=== PATIENT | female | born 1960 | race Hispanic/Latino ===

== ENCOUNTER 2021-12-17 17:26 | Observation (INO) | payer SELFPAY ==
[2021-12-17] MEDS ORDERED: Lorazepam 2 MG/ML VIAL ONE (17:45)
[2021-12-17] MEDS ORDERED: Aspirin Chewable 81 MG TAB ONE (17:45)
[2021-12-17 18:19] LABS: #Basophils 0.1 thou/uL (0.0-0.2); #Eosinphils 0.2 thou/uL (0.0-0.7); #Lymphocytes 3.2 thou/uL (1.20-3.40); #Monocytes 0.7 thou/uL (0.11-0.59); #Neutrophils 5.5 thou/uL (1.40-6.50); %Basophils 0.6 % (0.0-1.0); %Lymphocytes 33.2 % (21.0-51.0); %Monocytes 7.1 % (0.0-10.0); Hemoglobin 13.2 g/dL (12.0-16.0); Mean Corpuscular Hemoglobin 30.7 pg (27.0-31.0); Mean Corpuscular Volume 90.3 fL (78.0-98.0); Mean Platelet Volume 8.1 fL (7.4-10.4); Platelet Count 218 thou/uL (130-400); RBC Distribution Width 12.1 % (11.5-14.5); Red Blood Cell (RBC) Count 4.29 mill/uL (4.20-5.40); White Blood Cell (WBC) Count 9.7 thou/uL (4.8-10.8)
[2021-12-17 18:42] LABS: ALT (SGPT) 15 U/L (8-55); AST (SGOT) 17 U/L (5-34); Albumin 4.1 g/dL (3.4-4.8); Alkaline Phosphatase 114 U/L (40-110); Anion Gap 13 mmol/L (10-20); BUN (Urea Nitrogen) 13 mg/dL (9.8-20.1); Bilirubin, Total 0.3 mg/dL (0.2-1.2); Calc. Creatinine Clearance 0 mL/min (70-130); Calcium 9.3 mg/dL (7.8-10.44); Carbon Dioxide 23 mmol/L (23-31); Chloride 94 mmol/L (98-107); Glucose 204 mg/dL (80-115); Lipase 57 U/L (8-78); Potassium 3.8 mmol/L (3.5-5.1); Protein, Total 7.1 g/dL (5.8-8.1); Sodium 126 mmol/L (136-145)
[2021-12-17 21:42] LABS: Troponin I Less than 0.010 ng/mL (< 0.028)
[2021-12-17] MEDS ORDERED: Ondansetron ODT 4 MG TAB PO PRN (22:20)
[2021-12-17] MEDS ORDERED: Acetaminophen 325 MG TAB PO PRN (22:20)
[2021-12-17] MEDS ORDERED: Nitroglycerin 0.4 MG TAB (25 Tab Bottle) SL PRN (22:23)
[2021-12-17] MEDS ORDERED: hydrALAZINE 20 MG/ML VIAL SLOW IVP PRN (22:23)
[2021-12-17] MEDS ORDERED: Electrolyte Replacement Protocol 1 EACH FS SCH (22:30)
[2021-12-18 01:24] LABS: Troponin I Less than 0.010 ng/mL (< 0.028)
[2021-12-18 05:23] LABS: #Basophils 0.1 thou/uL (0.0-0.2); #Eosinphils 0.1 thou/uL (0.0-0.7); #Lymphocytes 2.2 thou/uL (1.20-3.40); #Monocytes 0.5 thou/uL (0.11-0.59); #Neutrophils 5.3 thou/uL (1.40-6.50); %Basophils 0.6 % (0.0-1.0); %Eosinophils 1.6 % (0.0-10.0); %Lymphocytes 26.8 % (21.0-51.0); %Monocytes 6.1 % (0.0-10.0); %Neutrophils 64.8 % (42.0-75.0); Hemoglobin 12.4 g/dL (12.0-16.0); Mean Corpuscular HGB CONC 33.2 g/dL (32.0-36.0); Mean Corpuscular Hemoglobin 30.4 pg (27.0-31.0); Mean Corpuscular Volume 91.6 fL (78.0-98.0); Mean Platelet Volume 8.3 fL (7.4-10.4); Platelet Count 216 thou/uL (130-400); RBC Distribution Width 12.1 % (11.5-14.5); Red Blood Cell (RBC) Count 4.07 mill/uL (4.20-5.40); White Blood Cell (WBC) Count 8.2 thou/uL (4.8-10.8)
[2021-12-18 05:34] LABS: Hemoglobin A1c 5.5 % (4.0-6.0)
[2021-12-18 05:50] LABS: Anion Gap 13 mmol/L (10-20); BUN (Urea Nitrogen) 11 mg/dL (9.8-20.1); Calc. Creatinine Clearance 0 mL/min (70-130); Calcium 9.3 mg/dL (7.8-10.44); Carbon Dioxide 23 mmol/L (23-31); Cardiac Risk 3.2 (Less than 4.5); Chloride 104 mmol/L (98-107); Cholesterol 172 mg/dl (< 200 Desired); Glucose 98 mg/dL (80-115); HDL Cholesterol 54 mg/dL (>60 Neg Risk); LDL Cholesterol, Calculated 102 mg/dL; Magnesium 2.2 mg/dL (1.6-2.6); Potassium 4.3 mmol/L (3.5-5.1); Sodium 136 mmol/L (136-145); Triglycerides 78 mg/dL (Less than 150)
[2021-12-18] MEDS: Nitroglycerin 2% Ointment 1 INCH/1 GM Packet TOP SCH ×2 (06:06→16:28)
[2021-12-18 07:38] LABS: SARS-CoV-2 PCR by NAA Not Detected (NotDetected)
[2021-12-18 08:09] VITALS: BMI 28.2
[2021-12-18] MEDS ORDERED: FLU VACC QS2021-22(6MOS UP)/PF 60 MCG/0.5 ML SYRINGE IM ONE (08:30)
[2021-12-18] MEDS ORDERED: Aspirin Chewable 81 MG TAB PO SCH (09:00)
[2021-12-18] MEDS ORDERED: Morphine 2 MG/ML VIAL SLOW IVP PRN (10:45)
[2021-12-18] MEDS ORDERED: Morphine 4 MG/ML VIAL SLOW IVP PRN (10:49)
[2021-12-18] MEDS ORDERED: ADENOSINE 60 MG/20 ML VIAL ONE (11:31)
[2021-12-18 16:43] VITALS: BP 129/78; TEMP 98.5
== END 2021-12-18 17:30 | disposition home or self-care (01) ==
LOC: ERS 17:26 → 2NO 20:10
PROVIDERS: ADMIT Student in an Organized Health Care Education/Training Program; ATTEND Internal Medicine
DX: R07.89 Other chest pain (principal); R55 Syncope and collapse; R06.02 Shortness of breath; R53.1 Weakness; M25.551 Pain in right hip; I10 Essential (primary) hypertension; E87.1 Hypo-osmolality and hyponatremia; Z20.822 Contact with and (suspected) exposure to COVID-19
CPT/HCPCS: 36415; 71045; 78452; 80048; 80053; 80061; 83036; 83690; 83735; 83930; 84443; 84484; 85025; 93005; 93010; 93017; 93306; 93880; 94760; 96374; A9500; G0378; J2060; U0003; U0005